=== PATIENT | male | born 1950 | race Caucasian/White ===

== ENCOUNTER → 2016-08-17 | Outpatient (CLI) | payer MEDICARE, OTHER ==
[~2016-08-17] MED LIST: ATEN-60 PO; CYCL5TAB PO; HYDR-531 PO; MULT1TAB70 PO; NIAC500T6 PO; RED1CAP PO
[2016-08-17 11:12] LABS: Basophils # (auto) 0 uL; Basophils % (auto) 0.6 % (0.0-2.0); Eosinophils # (auto) 0.3 uL; Hemoglobin 13.8 g/dL (13.5-17.5); Lymphocytes # (auto) 1.5 uL; Lymphocytes % (auto) 28.9 % (10.0-50.0); Mean Corpuscular Hemoglobin 31.3 pg (28.0-32.0); Mean Corpuscular Hgb Conc. 32.1 g/dL (32.0-36.0); Mean Corpuscular Volume 97.5 fL (80.0-100.0); Mean Platelet Volume 7.8 fL (7.4-10.4); Monocytes # (auto) 0.5 uL; Neutrophils # (auto) 2.7 uL; Neutrophils % (auto) 54.5 % (37.0-80.0); Platelet Count (auto) 260 10^3/uL (140-450); Red Cell Distribution Width 13.2 % (11.6-16.0)
[2016-08-17 11:37] LABS: INR 1.03 (0.9-1.15); Partial Thromboplastin Time 27.8 sec (22.64-33.71); Prothrombin Time 10.6 sec (9.37-12.3)
[2016-08-17 13:04] LABS: Albumin 3.7 g/dL (3.4-5.0); BUN/Creatinine Ratio 16.7; Calcium 8.6 mg/dL (8.5-10.1); Potassium 4.1 mmol/L (3.5-5.1)
[2016-08-17 13:06] LABS: Bilirubin, Total 0.5 mg/dL (0.2-1.0); Total Protein 6.9 g/dL (6.4-8.2)
== END | disposition home or self-care (01) ==
LOC: LAB 10:23
PROVIDERS: ATTEND Orthopaedic Surgery
DX: M16.11 Unilateral primary osteoarthritis, right hip (principal)
CPT/HCPCS: 36415; 80053; 85025; 85610; 85730; 86850; 86900; 86901

== ENCOUNTER 2016-08-21 08:05 | Inpatient (IN) | payer MEDICARE, OTHER ==
[~2016-08-21] VITALS: Ht 188 cm; Wt 87.0 kg
[2016-08-21] MEDS ORDERED: ceFAZolin 1GM/50ML D5W 50 ML IV ONE ×2 (08:31→09:08)
[2016-08-21] MEDS ORDERED: TETRACAINE 1% INJ 2 ML VIAL IJ ONE (10:05)
[2016-08-21] MEDS ORDERED: MIDAZOLAM HCL 1MG/1ML-2 ML VIAL ONE ×2 (10:20→10:31)
[2016-08-21] MEDS ORDERED: fentaNYL CITRATE 100 MCG/2 ML VL ONE (10:20)
[2016-08-21] MEDS ORDERED: PROPOFOL 10 MG/ML 20 ML IV ONE ×2 (10:31→10:47)
[2016-08-21] MEDS ORDERED: DEXAMETHASONE SOD PHOS 10MG/1ML VIAL INJ ONE (10:31)
[2016-08-21] MEDS ORDERED: PHENYLEPHRINE HCL 10 MG/ML VL ONE (10:47)
[2016-08-21] MEDS ORDERED: KETOROLAC TROMETH 30 MG/ML 1ML VIAL IV ONE (11:00)
[2016-08-21] MEDS ORDERED: MIDAZOLAM HCL 1MG/1ML-2 ML VIAL IV PRN (11:00)
[2016-08-21] MEDS ORDERED: ePHEDrine SULFATE 50 MG/ML AMP IV PRN (11:00)
[2016-08-21] MEDS ORDERED: ONDANSETRON HCL 4 MG/2 ML VIAL IV ONE (11:00)
[2016-08-21] MEDS ORDERED: HYDROmorphone HCL 2 MG/ML VL IV PRN (11:00)
[2016-08-21] MEDS ORDERED: hydrALAZINE HCL 20 MG/ML VL IV PRN (11:00)
[2016-08-21] MEDS ORDERED: MORPHINE SULF INJ 2 MG/ML SYRINGE 1ML IV PRN ×2 (11:00→13:45)
[2016-08-21] MEDS ORDERED: LABETALOL HCL 5 MG/ML 4ML SYRINGE IV PRN (11:00)
[2016-08-21] MEDS: LACTATED RINGER'S 1,000 ML IV SCH (13:34)
[2016-08-21] MEDS ORDERED: HYDROcodone-ACET 10/325MG TAB PO PRN (13:45)
[2016-08-21] MEDS ORDERED: NITROGLYCERIN 0.4 MG SL TAB SL PRN (13:45)
[2016-08-21] MEDS ORDERED: TEMAZEPAM 15 MG CAP PO PRN (13:45)
[2016-08-21] MEDS: oxyCODONE ER 10 MG TAB PO SCH ×2 (13:47→22:45)
[2016-08-21 14:15] VITALS: BP 109/70
[2016-08-21 14:39] VITALS: BP 109/70
[2016-08-21 15:39] LABS: Hematocrit 42.1 % (41.0-53.0); Hemoglobin 13.6 g/dL (13.5-17.5)
[2016-08-21 17:08] VITALS: BP 122/69
[2016-08-21] MEDS: ceFAZolin 1GM/50ML D5W 50 ML IV SCH (18:13)
[2016-08-21] MEDS: SODIUM CHLOR 0.9% PF (SALINE LOCK) 10ML VIAL IV SCH ×2 (18:14→22:46)
[2016-08-21] MEDS: HYDROmorphone HCL 2 MG/ML VL IV PRN ×2 (18:43→21:13)
[2016-08-21 20:00] VITALS: BP 99/58
[2016-08-21 21:38] VITALS: BP 113/72
[2016-08-21] MEDS: DOCUSATE SOD 100 MG CAP PO SCH (22:45)
[2016-08-22] MEDS: ceFAZolin 1GM/50ML D5W 50 ML IV SCH ×2 (00:12→06:31)
[2016-08-22] MEDS: ACETAMINOPHEN 325 MG TAB PO PRN ×2 (00:40→07:17)
[2016-08-22] MEDS: ONDANSETRON HCL 4 MG/2 ML VIAL IV PRN ×2 (03:30→20:58)
[2016-08-22 05:00] VITALS: BP 137/80
[2016-08-22] MEDS: SODIUM CHLOR 0.9% PF (SALINE LOCK) 10ML VIAL IV SCH ×3 (06:32→21:13)
[2016-08-22 08:24] VITALS: BP 128/75
[2016-08-22 08:31] LABS: Hematocrit 41.5 % (41.0-53.0); Hemoglobin 13.3 g/dL (13.5-17.5)
[2016-08-22] MEDS: LACTATED RINGER'S 1,000 ML IV SCH (08:38)
[2016-08-22 08:53] LABS: Albumin 3.3 g/dL (3.4-5.0); BUN/Creatinine Ratio 16.9; Bilirubin, Total 0.5 mg/dL (0.2-1.0); Calcium 8.5 mg/dL (8.5-10.1); Potassium 3.6 mmol/L (3.5-5.1); Total Protein 6.4 g/dL (6.4-8.2)
[2016-08-22] MEDS: DOCUSATE SOD 100 MG CAP PO SCH ×2 (09:06→21:13)
[2016-08-22] MEDS: PANTOPRAZOLE 40 MG TAB PO SCH (09:06)
[2016-08-22] MEDS: ENOXAPARIN SOD 40 MG/0.4 ML SYRINGE SC SCH (09:06)
[2016-08-22] MEDS: oxyCODONE ER 10 MG TAB PO SCH ×2 (09:08→21:32)
[2016-08-22] MEDS: ATENOLOL 25 MG TAB PO SCH (09:08)
[2016-08-22] MEDS: HYDROmorphone HCL 2 MG/ML VL IV PRN ×4 (11:20→21:12)
[2016-08-22 13:00] VITALS: BP 136/74
[2016-08-22] MEDS: ALUM & MAG HYDROX-SIMETH LIQ(MAALOX) 30 ML PO PRN (16:12)
[2016-08-22 16:45] VITALS: BP 140/78
[2016-08-22] MEDS ORDERED: FAMOTIDINE 20 MG TAB PO SCH (21:21)
[2016-08-22 21:27] VITALS: BP 142/81
[2016-08-22] MEDS: FAMOTIDINE 20 MG TAB PO SCH (21:45)
[2016-08-23 05:10] VITALS: BP 148/81
[2016-08-23] MEDS: LACTATED RINGER'S 1,000 ML IV SCH ×2 (05:31→20:40)
[2016-08-23] MEDS: SODIUM CHLOR 0.9% PF (SALINE LOCK) 10ML VIAL IV SCH ×3 (05:49→20:39)
[2016-08-23] MEDS: ACETAMINOPHEN 325 MG TAB PO PRN ×2 (06:37→12:50)
[2016-08-23 08:19] VITALS: BP 139/83
[2016-08-23 08:29] LABS: Hematocrit 40.7 % (41.0-53.0); Hemoglobin 12.8 g/dL (13.5-17.5)
[2016-08-23] MEDS: DOCUSATE SOD 100 MG CAP PO SCH ×2 (09:39→20:40)
[2016-08-23] MEDS: ENOXAPARIN SOD 40 MG/0.4 ML SYRINGE SC SCH (09:39)
[2016-08-23] MEDS: PANTOPRAZOLE 40 MG TAB PO SCH (09:39)
[2016-08-23] MEDS: oxyCODONE ER 10 MG TAB PO SCH ×2 (09:39→20:40)
[2016-08-23 13:00] VITALS: BP 124/68
[2016-08-23 17:01] VITALS: BP 148/79
[2016-08-23] MEDS: ALUM & MAG HYDROX-SIMETH LIQ(MAALOX) 30 ML PO PRN (18:04)
[2016-08-23] MEDS: FAMOTIDINE 20 MG TAB PO SCH (20:40)
[2016-08-23] MEDS: IBUPROFEN 400 MG TAB PO PRN (20:40)
[2016-08-23 21:40] VITALS: BP 134/71
[2016-08-24] MEDS: IBUPROFEN 400 MG TAB PO PRN ×3 (02:33→14:03)
[2016-08-24 04:53] VITALS: BP 139/73
[2016-08-24] MEDS: SODIUM CHLOR 0.9% PF (SALINE LOCK) 10ML VIAL IV SCH ×3 (05:27→22:15)
[2016-08-24] MEDS: ALUM & MAG HYDROX-SIMETH LIQ(MAALOX) 30 ML PO PRN (06:45)
[2016-08-24 08:24] LABS: Hematocrit 39.6 % (41.0-53.0); Hemoglobin 12.8 g/dL (13.5-17.5)
[2016-08-24 09:00] VITALS: BP 128/74
[2016-08-24] MEDS: oxyCODONE ER 10 MG TAB PO SCH ×2 (09:54→22:00)
[2016-08-24] MEDS: DOCUSATE SOD 100 MG CAP PO SCH ×2 (09:54→22:00)
[2016-08-24] MEDS: PANTOPRAZOLE 40 MG TAB PO SCH (10:11)
[2016-08-24] MEDS: ENOXAPARIN SOD 40 MG/0.4 ML SYRINGE SC SCH (10:11)
[2016-08-24] MEDS: ATENOLOL 25 MG TAB PO SCH (10:12)
[2016-08-24 13:00] VITALS: BP 126/78
[2016-08-24 16:50] VITALS: BP 133/70
[2016-08-24 22:01] VITALS: BP 135/77
[2016-08-25] MEDS: IBUPROFEN 400 MG TAB PO PRN ×2 (02:52→07:57)
[2016-08-25 05:30] VITALS: BP 113/67
[2016-08-25] MEDS: SODIUM CHLOR 0.9% PF (SALINE LOCK) 10ML VIAL IV SCH (05:30)
[2016-08-25 08:53] LABS: Hematocrit 36.5 % (41.0-53.0); Hemoglobin 11.7 g/dL (13.5-17.5)
[2016-08-25 09:00] VITALS: BP 150/75
[2016-08-25 09:31] VITALS: BP 150/75
[2016-08-25 11:56] VITALS: BP 138/70
== END 2016-08-25 12:10 | disposition home health service (06) | DRG 470 ==
LOC: SUR 08:05 → CENTRAL 08:06
PROVIDERS: ADMIT Orthopaedic Surgery; ATTEND Internal Medicine
PROC: 0MBL0ZZ Excision of Right Hip Bursa and Ligament, Open Approach (ICD-10-PCS; 2016-08-21)
PROC: 0T9B70Z Drainage of Bladder with Drainage Device, Via Natural or Artificial Opening (ICD-10-PCS; 2016-08-21)
PROC: 0SR90JZ Replacement of Right Hip Joint with Synthetic Substitute, Open Approach (ICD-10-PCS; principal; 2016-08-21 10:27)
PROC: 0TPBX0Z Removal of Drainage Device from Bladder, External Approach (ICD-10-PCS; 2016-08-24)
DX: M16.11 Unilateral primary osteoarthritis, right hip (principal); M70.60 Trochanteric bursitis, unspecified hip; I49.3 Ventricular premature depolarization; R33.9 Retention of urine, unspecified; K30 Functional dyspepsia; Z79.899 Other long term (current) drug therapy
CPT/HCPCS: 36415; 73501; 80053; 85014; 85018; 97001; 97116; 97530; J0690; J1100; J2250; J2405; J2704